=== PATIENT | female | born 1965 | race Two or more races ===

== ENCOUNTER 2023-01-18 15:24 | Inpatient (IN) | payer OTHER ==
[2023-01-18] MEDS ORDERED: ALBUTEROL SO4 2.5/IPRATROPIUM 0.5 INH SOL 3 ML VIAL.NEB. NEB ONE (16:19)
[2023-01-18] MEDS: ALBUTEROL SO4 2.5/IPRATROPIUM 0.5 INH SOL 3 ML VIAL.NEB. NEB SCH (16:24)
[2023-01-18 16:35] LABS: BASO % 0.6 % (0-2.0); EOS % 0.3 % (0-4.5); HEMOGLOBIN 10.1 GM/dL (10.7-15.3); MCH 27.1 pg (25.7-33.7); MCHC 31.6 g/dl (32.0-36.0); MEAN CELL VOLUME 85.9 fl (80-96); MEAN PLT VOLUME 7.5 fl (7.5-11.1); MONO % 5.8 % (3.8-10.2); NEUT % 87.3 % (42.8-82.8); PLATELET COUNT 988 10^3/uL (134-434); RBC 3.72 M/mm3 (3.60-5.2); WHITE BLOOD COUNT 12.6 K/mm3 (4.0-10.0)
[2023-01-18] MEDS ORDERED: PIPERACILLIN/TAZOB 4.5 GM 4.5 GM in DEXTROSE 5%-WATER - 100 ML IVPB ONE (16:49)
[2023-01-18] MEDS ORDERED: VANCOMYCIN 1,000 MG in DEXTROSE 5%-WATER - 250 ML IVPB ONE (16:49)
[2023-01-18 16:52] LABS: SODIUM 137 mmol/L (136-145)
[2023-01-18] MEDS ORDERED: AZITHROMYCIN IVPB 500 MG in DEXTROSE 5%-WATER - 250 ML IVPB ONE (16:52)
[2023-01-18 16:53] LABS: CHLORIDE 104 mmol/L (98-107)
[2023-01-18 16:55] LABS: ALBUMIN 2.7 g/dl (3.4-5.0); CALCIUM 9.1 mg/dL (8.5-10.1)
[2023-01-18 16:56] LABS: CO2 25 mmol/L (21-32); GLUCOSE,RANDOM 104 mg/dL (74-106); MAGNESIUM 2.1 mg/dL (1.8-2.4)
[2023-01-18] MEDS ORDERED: SODIUM CHLORIDE 1,000 ML IV STA (16:58)
[2023-01-18 16:59] LABS: BILIRUBIN,TOTAL 0.5 mg/dL (0.2-1); CREATININE 1.1 mg/dL (0.55-1.3); SGOT/AST 50 U/L (15-37); SGPT/ALT 30 U/L (13-61)
[2023-01-18 17:01] LABS: ALK PHOS 99 U/L (45-117)
[2023-01-18 17:03] LABS: TOT PROT 7.8 g/dl (6.4-8.2)
[2023-01-18 17:14] LABS: ANION GAP 7 MMOL/L (8-16); POTASSIUM 6.3 mmol/L (3.5-5.1)
[2023-01-18] MEDS ORDERED: PIPERACILLIN/TAZOB 4.5 GM 4.5 GM/100 ML BAG IVPB ONE ×2 (17:33→22:19)
[2023-01-18 17:51] LABS: INR 1.38 (0.83-1.09); PROTHROMBIN TIME (PATIENT) 15.9 SEC (9.7-13.0)
[2023-01-18 17:54] LABS: ACTIVATED PTT 24.9 SECONDS (25.2-36.5)
[2023-01-18] MEDS ORDERED: VANCOMYCIN 1 GRAM (PRE-DOCKED) 1,000 MG/250 ML BAG IVPB ONE (18:04)
[2023-01-18 18:06] LABS: POTASSIUM 4.9 mmol/L (3.5-5.1)
[2023-01-18 18:09] LABS: CALCIUM 8.5 mg/dL (8.5-10.1)
[2023-01-18 18:10] LABS: ALBUMIN 2.6 g/dl (3.4-5.0); BLOOD UREA NITROGEN 20.3 mg/dL (7-18)
[2023-01-18 18:14] LABS: BILIRUBIN,TOTAL 0.4 mg/dL (0.2-1); TOT PROT 7.6 g/dl (6.4-8.2)
[2023-01-18] MEDS ORDERED: methylPREDNISolone NA SUCC 125 MG/2 ML VIAL IVPUSH ONE (18:30)
[2023-01-18] MEDS ORDERED: methylPREDNISolone NA SUCC 125 MG/2 ML VIAL ONE (18:36)
[2023-01-18] MEDS ORDERED: AZITHROMYCIN IVPB 500 MG/250 ML BAG IVPB ONE (20:36)
[2023-01-18] MEDS: INSULIN SLIDING SCALE (NOVOLOG) 1 VIAL SQ SCH (21:00)
[2023-01-18] MEDS ORDERED: ALBUTEROL SO4 2.5/IPRATROPIUM 0.5 INH SOL 3 ML VIAL.NEB. NEB PRN (21:32)
[2023-01-18 21:45] LABS: HIV INTERPRETATION NEGATIVE (NEGATIVE)
[2023-01-18 21:56] LABS: EPI CELLS 16 /uL (0-25.1); HYALINE CASTS 1 /uL (0-3.1); PH,URINE 5.5 (5.0-8.0); URINE APPEARANCE CLEAR; URINE BACTERIA 28 /uL (0-1359); URINE BILIRUBIN NEGATIVE (NEGATIVE); URINE COLOR YELLOW; URINE GLUCOSE (UA) NEGATIVE (NEGATIVE); URINE KETONE NEGATIVE (NEGATIVE); URINE LEUK ESTERASE TRACE (NEGATIVE); URINE NITRITE NEGATIVE (NEGATIVE); URINE PROTEIN TRACE (NEGATIVE); URINE RBC 9 /uL (0-23.9); URINE UROBILINOGEN 0.2 mg/dL (0.2-1.0); URINE WBC 22 /uL (0-25.8)
[2023-01-18] MEDS: PIPERACILLIN/TAZOB 4.5 GM 4.5 GM in DEXTROSE 5%-WATER 100 ML IVPB SCH (22:25)
[2023-01-19] MEDS ORDERED: PIPERACILLIN/TAZOB 4.5 GM 4.5 GM in DEXTROSE 5%-WATER 100 ML IVPB SCH ×2 (03:00)
[2023-01-19] MEDS ORDERED: PIPERACILLIN/TAZOB 4.5 GM 4.5 GM/100 ML BAG IVPB ONE ×3 (03:11→15:20)
[2023-01-19] MEDS: PIPERACILLIN/TAZOB 4.5 GM 4.5 GM in DEXTROSE 5%-WATER 100 ML IVPB SCH ×5 (03:20→22:11)
[2023-01-19] MEDS ORDERED: SODIUM CHLORIDE 500 ML IV STA (04:05)
[2023-01-19] MEDS ORDERED: VANCOMYCIN PREMIX 1.5 GM 1,500 MG/300 ML BAG IVPB ONE (06:00)
[2023-01-19] MEDS: INSULIN SLIDING SCALE (NOVOLOG) 1 VIAL SQ SCH ×4 (08:22→22:12)
[2023-01-19 08:34] LABS: HEMATOCRIT 28.2 % (32.4-45.2); HEMOGLOBIN 8.9 GM/dL (10.7-15.3); MCH 27.8 pg (25.7-33.7); MCHC 31.4 g/dl (32.0-36.0); MEAN CELL VOLUME 88.5 fl (80-96); MEAN PLT VOLUME 7.9 fl (7.5-11.1); PLATELET COUNT 800 10^3/uL (134-434); RBC 3.19 M/mm3 (3.60-5.2); RDW 15.8 % (11.6-15.6); WHITE BLOOD COUNT 9.4 K/mm3 (4.0-10.0)
[2023-01-19 08:51] LABS: POTASSIUM 5.2 mmol/L (3.5-5.1)
[2023-01-19 08:52] LABS: CALCIUM 8.2 mg/dL (8.5-10.1)
[2023-01-19 08:54] LABS: ALBUMIN 2.4 g/dl (3.4-5.0)
[2023-01-19 08:59] LABS: BILIRUBIN,TOTAL 0.5 mg/dL (0.2-1); TOT PROT 6.9 g/dl (6.4-8.2)
[2023-01-19 09:40] LABS: ANISOCYTOSIS 1+; MACROCYTOSIS 0
[2023-01-19] MEDS ORDERED: PATIENT'S OWN MEDICATION (NON-FORMULARY) (Escitalopram Oxalate [Escitalopram Oxalate] 5 MG PO SCH (10:00)
[2023-01-19] MEDS ORDERED: AZITHROMYCIN IVPB 500 MG in DEXTROSE 5%-WATER - 250 ML IVPB SCH (10:00)
[2023-01-19] MEDS ORDERED: ENOXAPARIN NA (PORCINE) 40 MG/0.4 ML DISP.SYRIN SQ ONE (10:40)
[2023-01-19] MEDS ORDERED: ESCITALOPRAM OXALATE 10 MG TABLET ONE (10:40)
[2023-01-19] MEDS ORDERED: METOPROLOL TARTRATE 50 MG TABLET (FP) ONE (10:40)
[2023-01-19] MEDS ORDERED: methylPREDNISolone NA SUCC 40 MG/1 ML VIAL ONE (10:40)
[2023-01-19] MEDS ORDERED: AZITHROMYCIN IVPB 500 MG/250 ML BAG IVPB ONE (10:41)
[2023-01-19] MEDS: AZITHROMYCIN IVPB 500 MG/250 ML BAG IVPB SCH (10:55)
[2023-01-19] MEDS: ENOXAPARIN NA (PORCINE) 40 MG/0.4 ML DISP.SYRIN SQ SCH (10:55)
[2023-01-19] MEDS: METOPROLOL TARTRATE 50 MG TABLET (FP) PO SCH (10:55)
[2023-01-19] MEDS: methylPREDNISolone NA SUCC 40 MG/1 ML VIAL IVPUSH SCH (10:55)
[2023-01-19] MEDS: ESCITALOPRAM OXALATE 10 MG TABLET PO SCH (10:55)
[2023-01-19] MEDS: ALBUTEROL SO4 2.5/IPRATROPIUM 0.5 INH SOL 3 ML VIAL.NEB. NEB SCH ×3 (12:55→21:09)
[2023-01-19] MEDS ORDERED: ALBUTEROL SO4 2.5/IPRATROPIUM 0.5 INH SOL 3 ML VIAL.NEB. NEB ONE ×2 (12:56→16:48)
[2023-01-19 18:01] VITALS: BMI 36.6
[2023-01-19] MEDS ORDERED: PATIENT'S OWN MEDICATION (NON-FORMULARY) (Olmesartan Medoxomil [Olmesartan Medoxomil] 20 M PO SCH (22:00)
[2023-01-19] MEDS: DONEPEZIL HCL 5 MG TABLET (FP) PO SCH (22:11)
[2023-01-19] MEDS: LOSARTAN POTASSIUM 50 MG TABLET PO SCH ×2 (22:13→22:15)
[2023-01-20] MEDS: PIPERACILLIN/TAZOB 4.5 GM 4.5 GM in DEXTROSE 5%-WATER 100 ML IVPB SCH ×3 (02:20→14:15)
[2023-01-20] MEDS: INSULIN SLIDING SCALE (NOVOLOG) 1 VIAL SQ SCH ×4 (06:14→21:53)
[2023-01-20 07:55] LABS: BASO % 0.2 % (0-2.0); HEMATOCRIT 28.4 % (32.4-45.2); HEMOGLOBIN 8.8 GM/dL (10.7-15.3); LYMPH % 7.3 % (8-40); MCH 27.1 pg (25.7-33.7); MCHC 31.2 g/dl (32.0-36.0); MEAN PLT VOLUME 7.9 fl (7.5-11.1); MONO % 6.5 % (3.8-10.2); PLATELET COUNT 799 10^3/uL (134-434); RBC 3.27 M/mm3 (3.60-5.2); RDW 15.4 % (11.6-15.6)
[2023-01-20 08:12] LABS: POTASSIUM 4.6 mmol/L (3.5-5.1)
[2023-01-20 08:20] LABS: ALBUMIN 2.2 g/dl (3.4-5.0); BLOOD UREA NITROGEN 20.6 mg/dL (7-18); CALCIUM 8.2 mg/dL (8.5-10.1)
[2023-01-20 08:23] LABS: CREATININE 0.9 mg/dL (0.55-1.3)
[2023-01-20 08:25] LABS: BILIRUBIN,TOTAL 0.4 mg/dL (0.2-1)
[2023-01-20 08:26] LABS: TOT PROT 6.6 g/dl (6.4-8.2)
[2023-01-20] MEDS: ALBUTEROL SO4 2.5/IPRATROPIUM 0.5 INH SOL 3 ML VIAL.NEB. NEB SCH ×4 (10:05→20:47)
[2023-01-20] MEDS: ENOXAPARIN NA (PORCINE) 40 MG/0.4 ML DISP.SYRIN SQ SCH (11:40)
[2023-01-20] MEDS: ESCITALOPRAM OXALATE 10 MG TABLET PO SCH (11:41)
[2023-01-20] MEDS: AZITHROMYCIN IVPB 500 MG/250 ML BAG IVPB SCH (11:41)
[2023-01-20] MEDS: methylPREDNISolone NA SUCC 40 MG/1 ML VIAL IVPUSH SCH (11:41)
[2023-01-20] MEDS: METOPROLOL TARTRATE 50 MG TABLET (FP) PO SCH (11:41)
[2023-01-20] MEDS ORDERED: FUROSEMIDE 40 MG/4 ML INJECTABLE VIAL IVPUSH ONE (12:28)
[2023-01-20] MEDS: VANCOMYCIN HCL 1,500 MG in DEXTROSE 5%-WATER - 250 ML IVPB SCH (20:45)
[2023-01-20] MEDS ORDERED: INSULIN (NOVOLOG) ASPART 100 UNITS/ML 10ML VIAL ONE (21:37)
[2023-01-20] MEDS: DONEPEZIL HCL 5 MG TABLET (FP) PO SCH (21:52)
[2023-01-20] MEDS: VANCOMYCIN/WATER 1250 MG 1,250 MG/250 ML BAG IVPB SCH (21:52)
[2023-01-20] MEDS: LOSARTAN POTASSIUM 50 MG TABLET PO SCH (22:48)
[2023-01-21] MEDS: MEROPENEM 1 GM in DEXTROSE 5%-WATER 100 ML IVPB SCH ×3 (02:04→17:22)
[2023-01-21] MEDS: INSULIN SLIDING SCALE (NOVOLOG) 1 VIAL SQ SCH ×4 (06:27→21:28)
[2023-01-21] MEDS: VANCOMYCIN/WATER 1250 MG 1,250 MG/250 ML BAG IVPB SCH ×2 (06:28→18:16)
[2023-01-21] MEDS: ALBUTEROL SO4 2.5/IPRATROPIUM 0.5 INH SOL 3 ML VIAL.NEB. NEB SCH ×4 (07:20→21:02)
[2023-01-21] MEDS: methylPREDNISolone NA SUCC 40 MG/1 ML VIAL IVPUSH SCH (09:00)
[2023-01-21] MEDS: ESCITALOPRAM OXALATE 10 MG TABLET PO SCH (09:00)
[2023-01-21] MEDS: METOPROLOL TARTRATE 50 MG TABLET (FP) PO SCH (09:02)
[2023-01-21] MEDS: ENOXAPARIN NA (PORCINE) 40 MG/0.4 ML DISP.SYRIN SQ SCH (09:02)
[2023-01-21] MEDS: AZITHROMYCIN IVPB 500 MG/250 ML BAG IVPB SCH (09:36)
[2023-01-21 11:54] LABS: BASO % 0.1 % (0-2.0); EOS % 0.1 % (0-4.5); HEMATOCRIT 33.3 % (32.4-45.2); HEMOGLOBIN 10.6 GM/dL (10.7-15.3); MCH 27.2 pg (25.7-33.7); MCHC 31.7 g/dl (32.0-36.0); MEAN PLT VOLUME 7.5 fl (7.5-11.1); MONO % 5.8 % (3.8-10.2); PLATELET COUNT 908 10^3/uL (134-434); RBC 3.88 M/mm3 (3.60-5.2); RDW 15.8 % (11.6-15.6); WHITE BLOOD COUNT 12.6 K/mm3 (4.0-10.0)
[2023-01-21 12:14] LABS: POTASSIUM 4.6 mmol/L (3.5-5.1)
[2023-01-21 12:16] LABS: CALCIUM 8.7 mg/dL (8.5-10.1)
[2023-01-21 12:17] LABS: BLOOD UREA NITROGEN 18.7 mg/dL (7-18); MAGNESIUM 1.8 mg/dL (1.8-2.4)
[2023-01-21 12:20] LABS: CREATININE 0.9 mg/dL (0.55-1.3)
[2023-01-21 12:21] LABS: BILIRUBIN,TOTAL 0.3 mg/dL (0.2-1); TOT PROT 7.9 g/dl (6.4-8.2)
[2023-01-21 12:27] LABS: ALBUMIN 2.8 g/dl (3.4-5.0); PHOSPHOROUS 2.8 mg/dL (2.5-4.9)
[2023-01-21] MEDS ORDERED: INSULIN (NOVOLOG) ASPART 100 UNITS/ML 10ML VIAL ONE ×2 (16:45→20:46)
[2023-01-21] MEDS: DONEPEZIL HCL 5 MG TABLET (FP) PO SCH (21:19)
[2023-01-21] MEDS: LOSARTAN POTASSIUM 50 MG TABLET PO SCH (21:19)
[2023-01-22] MEDS: MEROPENEM 1 GM in DEXTROSE 5%-WATER 100 ML IVPB SCH ×3 (03:09→17:25)
[2023-01-22 06:02] LABS: BASO % 0.1 % (0-2.0); EOS % 0.1 % (0-4.5); HEMATOCRIT 32.7 % (32.4-45.2); HEMOGLOBIN 10.3 GM/dL (10.7-15.3); LYMPH % 13.7 % (8-40); MCH 27.3 pg (25.7-33.7); MCHC 31.6 g/dl (32.0-36.0); MEAN CELL VOLUME 86.4 fl (80-96); MEAN PLT VOLUME 7.2 fl (7.5-11.1); MONO % 10.1 % (3.8-10.2); PLATELET COUNT 880 10^3/uL (134-434); RBC 3.78 M/mm3 (3.60-5.2); RDW 15.6 % (11.6-15.6); WHITE BLOOD COUNT 9.5 K/mm3 (4.0-10.0)
[2023-01-22] MEDS: INSULIN SLIDING SCALE (NOVOLOG) 1 VIAL SQ SCH ×4 (06:09→22:56)
[2023-01-22 06:30] LABS: POTASSIUM 4.5 mmol/L (3.5-5.1)
[2023-01-22 06:41] LABS: CALCIUM 8.9 mg/dL (8.5-10.1)
[2023-01-22 06:43] LABS: ALBUMIN 2.8 g/dl (3.4-5.0); BLOOD UREA NITROGEN 17.1 mg/dL (7-18)
[2023-01-22 07:44] LABS: MAGNESIUM 1.8 mg/dL (1.8-2.4)
[2023-01-22 07:48] LABS: CREATININE 0.8 mg/dL (0.55-1.3); PHOSPHOROUS 2.6 mg/dL (2.5-4.9)
[2023-01-22 07:49] LABS: BILIRUBIN,TOTAL 0.4 mg/dL (0.2-1); TOT PROT 7.6 g/dl (6.4-8.2)
[2023-01-22] MEDS: VANCOMYCIN/WATER 1250 MG 1,250 MG/250 ML BAG IVPB SCH (08:20)
[2023-01-22] MEDS: ALBUTEROL SO4 2.5/IPRATROPIUM 0.5 INH SOL 3 ML VIAL.NEB. NEB SCH ×4 (08:25→20:52)
[2023-01-22] MEDS: METOPROLOL TARTRATE 50 MG TABLET (FP) PO SCH (09:03)
[2023-01-22] MEDS: ESCITALOPRAM OXALATE 10 MG TABLET PO SCH (09:03)
[2023-01-22] MEDS: methylPREDNISolone NA SUCC 40 MG/1 ML VIAL IVPUSH SCH (09:03)
[2023-01-22] MEDS: ENOXAPARIN NA (PORCINE) 40 MG/0.4 ML DISP.SYRIN SQ SCH (09:05)
[2023-01-22] MEDS: AZITHROMYCIN IVPB 500 MG/250 ML BAG IVPB SCH (09:49)
[2023-01-22] MEDS ORDERED: INSULIN (NOVOLOG) ASPART 100 UNITS/ML 10ML VIAL ONE ×2 (11:34→17:21)
[2023-01-22] MEDS: LOSARTAN POTASSIUM 50 MG TABLET PO SCH (22:52)
[2023-01-22] MEDS: DONEPEZIL HCL 5 MG TABLET (FP) PO SCH (22:52)
[2023-01-23] MEDS: MEROPENEM 1 GM in DEXTROSE 5%-WATER 100 ML IVPB SCH ×3 (03:07→17:11)
[2023-01-23] MEDS: INSULIN SLIDING SCALE (NOVOLOG) 1 VIAL SQ SCH ×3 (06:25→17:11)
[2023-01-23] MEDS: ALBUTEROL SO4 2.5/IPRATROPIUM 0.5 INH SOL 3 ML VIAL.NEB. NEB SCH ×4 (07:40→20:43)
[2023-01-23 08:30] LABS: BASO % 0.1 % (0-2.0); EOS % 0.2 % (0-4.5); HEMATOCRIT 29.4 % (32.4-45.2); HEMOGLOBIN 9.5 GM/dL (10.7-15.3); MCH 27.8 pg (25.7-33.7); MCHC 32.5 g/dl (32.0-36.0); MEAN CELL VOLUME 85.6 fl (80-96); MEAN PLT VOLUME 7.1 fl (7.5-11.1); MONO % 9.4 % (3.8-10.2); NEUT % 77.3 % (42.8-82.8); PLATELET COUNT 668 10^3/uL (134-434); RBC 3.43 M/mm3 (3.60-5.2); RDW 15.7 % (11.6-15.6); WHITE BLOOD COUNT 8.7 K/mm3 (4.0-10.0)
[2023-01-23 08:50] LABS: POTASSIUM 4.2 mmol/L (3.5-5.1)
[2023-01-23 08:57] LABS: ALBUMIN 2.4 g/dl (3.4-5.0)
[2023-01-23 08:58] LABS: CALCIUM 8.5 mg/dL (8.5-10.1)
[2023-01-23 08:59] LABS: BILIRUBIN,TOTAL 0.3 mg/dL (0.2-1); BLOOD UREA NITROGEN 16.2 mg/dL (7-18); MAGNESIUM 1.8 mg/dL (1.8-2.4); TOT PROT 6.6 g/dl (6.4-8.2)
[2023-01-23 09:01] LABS: CREATININE 0.7 mg/dL (0.55-1.3); PHOSPHOROUS 2.8 mg/dL (2.5-4.9)
[2023-01-23] MEDS: ENOXAPARIN NA (PORCINE) 40 MG/0.4 ML DISP.SYRIN SQ SCH (10:59)
[2023-01-23] MEDS: methylPREDNISolone NA SUCC 40 MG/1 ML VIAL IVPUSH SCH (11:00)
[2023-01-23] MEDS: ESCITALOPRAM OXALATE 10 MG TABLET PO SCH (11:00)
[2023-01-23] MEDS: METOPROLOL TARTRATE 50 MG TABLET (FP) PO SCH (11:00)
[2023-01-23] MEDS: AZITHROMYCIN IVPB 500 MG/250 ML BAG IVPB SCH (11:01)
[2023-01-23] MEDS ORDERED: INSULIN (NOVOLOG) ASPART 100 UNITS/ML 10ML VIAL ONE (16:53)
[2023-01-23] MEDS: LOSARTAN POTASSIUM 50 MG TABLET PO SCH (23:59)
[2023-01-23] MEDS: DONEPEZIL HCL 5 MG TABLET (FP) PO SCH (23:59)
[2023-01-24] MEDS ORDERED: INSULIN (NOVOLOG) ASPART 100 UNITS/ML 10ML VIAL ONE ×2 (00:11→17:53)
[2023-01-24] MEDS: INSULIN SLIDING SCALE (NOVOLOG) 1 VIAL SQ SCH ×5 (00:13→23:19)
[2023-01-24] MEDS: MEROPENEM 1 GM in DEXTROSE 5%-WATER 100 ML IVPB SCH ×3 (03:13→17:58)
[2023-01-24 07:55] LABS: CALCIUM 8.5 mg/dL (8.5-10.1)
[2023-01-24 07:56] LABS: ALBUMIN 2.5 g/dl (3.4-5.0); BLOOD UREA NITROGEN 18.1 mg/dL (7-18); MAGNESIUM 1.8 mg/dL (1.8-2.4)
[2023-01-24 07:59] LABS: CREATININE 0.6 mg/dL (0.55-1.3); PHOSPHOROUS 2.8 mg/dL (2.5-4.9)
[2023-01-24 08:00] LABS: BILIRUBIN,TOTAL 0.3 mg/dL (0.2-1); TOT PROT 6.7 g/dl (6.4-8.2)
[2023-01-24 08:07] LABS: BASO % 0.1 % (0-2.0); EOS % 0.4 % (0-4.5); HEMATOCRIT 31.3 % (32.4-45.2); HEMOGLOBIN 9.8 GM/dL (10.7-15.3); LYMPH % 13.9 % (8-40); MCH 27.1 pg (25.7-33.7); MCHC 31.4 g/dl (32.0-36.0); MEAN CELL VOLUME 86.2 fl (80-96); MEAN PLT VOLUME 7.6 fl (7.5-11.1); MONO % 10.5 % (3.8-10.2); NEUT % 75.1 % (42.8-82.8); PLATELET COUNT 711 10^3/uL (134-434); RBC 3.63 M/mm3 (3.60-5.2); RDW 15.6 % (11.6-15.6); WHITE BLOOD COUNT 9.3 K/mm3 (4.0-10.0)
[2023-01-24] MEDS: ALBUTEROL SO4 2.5/IPRATROPIUM 0.5 INH SOL 3 ML VIAL.NEB. NEB SCH (09:45)
[2023-01-24] MEDS: methylPREDNISolone NA SUCC 40 MG/1 ML VIAL IVPUSH SCH (10:43)
[2023-01-24] MEDS: ESCITALOPRAM OXALATE 10 MG TABLET PO SCH (10:43)
[2023-01-24] MEDS: ENOXAPARIN NA (PORCINE) 40 MG/0.4 ML DISP.SYRIN SQ SCH (10:43)
[2023-01-24] MEDS: METOPROLOL TARTRATE 50 MG TABLET (FP) PO SCH (10:44)
[2023-01-24] MEDS: AZITHROMYCIN IVPB 500 MG/250 ML BAG IVPB SCH (10:44)
[2023-01-24] MEDS ORDERED: CASPOFUNGIN ACETATE 70 MG in SODIUM CHLORIDE 250 ML IVPB ONE (19:00)
[2023-01-24] MEDS: DONEPEZIL HCL 5 MG TABLET (FP) PO SCH (22:19)
[2023-01-24] MEDS: LOSARTAN POTASSIUM 50 MG TABLET PO SCH (22:19)
[2023-01-25] MEDS: MEROPENEM 1 GM in DEXTROSE 5%-WATER 100 ML IVPB SCH ×3 (03:16→17:39)
[2023-01-25] MEDS: INSULIN SLIDING SCALE (NOVOLOG) 1 VIAL SQ SCH ×4 (06:54→22:29)
[2023-01-25 08:39] LABS: BASO % 0.2 % (0-2.0); EOS % 0.6 % (0-4.5); HEMATOCRIT 31.3 % (32.4-45.2); LYMPH % 16.2 % (8-40); MCH 27.2 pg (25.7-33.7); MCHC 31.9 g/dl (32.0-36.0); MEAN CELL VOLUME 85.2 fl (80-96); MEAN PLT VOLUME 7.4 fl (7.5-11.1); MONO % 9.3 % (3.8-10.2); NEUT % 73.7 % (42.8-82.8); PLATELET COUNT 650 10^3/uL (134-434); RBC 3.68 M/mm3 (3.60-5.2); RDW 15.6 % (11.6-15.6)
[2023-01-25 09:02] LABS: POTASSIUM 3.9 mmol/L (3.5-5.1)
[2023-01-25 09:09] LABS: ALBUMIN 2.4 g/dl (3.4-5.0); BLOOD UREA NITROGEN 18.9 mg/dL (7-18); CALCIUM 8.6 mg/dL (8.5-10.1); MAGNESIUM 1.7 mg/dL (1.8-2.4)
[2023-01-25 09:11] LABS: BILIRUBIN,TOTAL 0.4 mg/dL (0.2-1); TOT PROT 6.5 g/dl (6.4-8.2)
[2023-01-25 09:12] LABS: CREATININE 0.6 mg/dL (0.55-1.3)
[2023-01-25] MEDS: METOPROLOL TARTRATE 50 MG TABLET (FP) PO SCH (10:04)
[2023-01-25] MEDS: ESCITALOPRAM OXALATE 10 MG TABLET PO SCH (10:04)
[2023-01-25] MEDS: ENOXAPARIN NA (PORCINE) 40 MG/0.4 ML DISP.SYRIN SQ SCH (10:04)
[2023-01-25] MEDS: CASPOFUNGIN ACETATE 50 MG in SODIUM CHLORIDE 250 ML IVPB SCH (11:01)
[2023-01-25] MEDS ORDERED: INSULIN (NOVOLOG) ASPART 100 UNITS/ML 10ML VIAL ONE (21:58)
[2023-01-25] MEDS: DONEPEZIL HCL 5 MG TABLET (FP) PO SCH (22:29)
[2023-01-25] MEDS: LOSARTAN POTASSIUM 50 MG TABLET PO SCH (22:29)
[2023-01-26] MEDS: MEROPENEM 1 GM in DEXTROSE 5%-WATER 100 ML IVPB SCH ×3 (01:49→19:20)
[2023-01-26] MEDS: INSULIN SLIDING SCALE (NOVOLOG) 1 VIAL SQ SCH ×4 (07:01→21:13)
[2023-01-26 09:29] LABS: BASO % 0.6 % (0-2.0); EOS % 3.2 % (0-4.5); HEMATOCRIT 34.7 % (32.4-45.2); HEMOGLOBIN 10.8 GM/dL (10.7-15.3); MCH 26.6 pg (25.7-33.7); MCHC 31.2 g/dl (32.0-36.0); MEAN CELL VOLUME 85.1 fl (80-96); MEAN PLT VOLUME 7.4 fl (7.5-11.1); NEUT % 64.2 % (42.8-82.8); PLATELET COUNT 637 10^3/uL (134-434); RBC 4.08 M/mm3 (3.60-5.2); RDW 15.9 % (11.6-15.6); WHITE BLOOD COUNT 6.5 K/mm3 (4.0-10.0)
[2023-01-26 09:48] LABS: POTASSIUM 3.7 mmol/L (3.5-5.1)
[2023-01-26 09:57] LABS: CALCIUM 8.8 mg/dL (8.5-10.1)
[2023-01-26 09:58] LABS: ALBUMIN 2.6 g/dl (3.4-5.0); BLOOD UREA NITROGEN 19.4 mg/dL (7-18); MAGNESIUM 1.8 mg/dL (1.8-2.4)
[2023-01-26 10:00] LABS: BILIRUBIN,TOTAL 0.5 mg/dL (0.2-1); CREATININE 0.6 mg/dL (0.55-1.3); TOT PROT 6.8 g/dl (6.4-8.2)
[2023-01-26] MEDS: METOPROLOL TARTRATE 50 MG TABLET (FP) PO SCH (11:30)
[2023-01-26] MEDS: ENOXAPARIN NA (PORCINE) 40 MG/0.4 ML DISP.SYRIN SQ SCH (11:30)
[2023-01-26] MEDS: PANTOPRAZOLE 40 MG TABLET PO SCH (11:30)
[2023-01-26] MEDS: ESCITALOPRAM OXALATE 10 MG TABLET PO SCH (11:31)
[2023-01-26] MEDS: CASPOFUNGIN ACETATE 50 MG in SODIUM CHLORIDE 250 ML IVPB SCH (11:31)
[2023-01-26] MEDS: DONEPEZIL HCL 5 MG TABLET (FP) PO SCH (21:13)
[2023-01-26] MEDS: LOSARTAN POTASSIUM 50 MG TABLET PO SCH (21:13)
[2023-01-27] MEDS: MEROPENEM 1 GM in DEXTROSE 5%-WATER 100 ML IVPB SCH ×3 (01:41→18:05)
[2023-01-27] MEDS: INSULIN SLIDING SCALE (NOVOLOG) 1 VIAL SQ SCH ×4 (06:55→21:50)
[2023-01-27] MEDS: ESCITALOPRAM OXALATE 10 MG TABLET PO SCH (10:38)
[2023-01-27] MEDS: METOPROLOL TARTRATE 50 MG TABLET (FP) PO SCH (10:38)
[2023-01-27] MEDS: PANTOPRAZOLE 40 MG TABLET PO SCH (10:39)
[2023-01-27] MEDS: ENOXAPARIN NA (PORCINE) 40 MG/0.4 ML DISP.SYRIN SQ SCH (10:39)
[2023-01-27] MEDS: CASPOFUNGIN ACETATE 50 MG in SODIUM CHLORIDE 250 ML IVPB SCH (10:39)
[2023-01-27 10:52] LABS: BASO % 0.4 % (0-2.0); EOS % 2.2 % (0-4.5); HEMATOCRIT 36.9 % (32.4-45.2); HEMOGLOBIN 11.9 GM/dL (10.7-15.3); LYMPH % 17.2 % (8-40); MCHC 32.3 g/dl (32.0-36.0); MEAN CELL VOLUME 83.5 fl (80-96); MONO % 10.4 % (3.8-10.2); NEUT % 69.8 % (42.8-82.8); PLATELET COUNT 648 10^3/uL (134-434); RBC 4.41 M/mm3 (3.60-5.2); RDW 15.6 % (11.6-15.6); WHITE BLOOD COUNT 7.1 K/mm3 (4.0-10.0)
[2023-01-27 11:11] LABS: POTASSIUM 3.8 mmol/L (3.5-5.1)
[2023-01-27 11:13] LABS: BLOOD UREA NITROGEN 14.5 mg/dL (7-18); MAGNESIUM 1.8 mg/dL (1.8-2.4)
[2023-01-27 11:16] LABS: CREATININE 0.7 mg/dL (0.55-1.3)
[2023-01-27 11:18] LABS: BILIRUBIN,TOTAL 0.6 mg/dL (0.2-1); TOT PROT 7.4 g/dl (6.4-8.2)
[2023-01-27] MEDS ORDERED: INSULIN (NOVOLOG) ASPART 100 UNITS/ML 10ML VIAL ONE (12:13)
[2023-01-27] MEDS: LOSARTAN POTASSIUM 50 MG TABLET PO SCH (21:50)
[2023-01-27] MEDS: DONEPEZIL HCL 5 MG TABLET (FP) PO SCH (21:50)
[2023-01-28] MEDS: MEROPENEM 1 GM in DEXTROSE 5%-WATER 100 ML IVPB SCH ×3 (01:29→17:19)
[2023-01-28] MEDS: INSULIN SLIDING SCALE (NOVOLOG) 1 VIAL SQ SCH ×4 (06:22→21:46)
[2023-01-28 09:46] LABS: EOS % 2.4 % (0-4.5); HEMATOCRIT 34.1 % (32.4-45.2); HEMOGLOBIN 10.9 GM/dL (10.7-15.3); LYMPH % 19.4 % (8-40); MCH 27.5 pg (25.7-33.7); MCHC 31.9 g/dl (32.0-36.0); MEAN PLT VOLUME 7.8 fl (7.5-11.1); MONO % 9.8 % (3.8-10.2); NEUT % 67.4 % (42.8-82.8); PLATELET COUNT 514 10^3/uL (134-434); RBC 3.96 M/mm3 (3.60-5.2); RDW 15.9 % (11.6-15.6); WHITE BLOOD COUNT 6.7 K/mm3 (4.0-10.0)
[2023-01-28] MEDS: ENOXAPARIN NA (PORCINE) 40 MG/0.4 ML DISP.SYRIN SQ SCH (10:03)
[2023-01-28 10:04] LABS: POTASSIUM 3.8 mmol/L (3.5-5.1)
[2023-01-28] MEDS: METOPROLOL TARTRATE 50 MG TABLET (FP) PO SCH (10:04)
[2023-01-28] MEDS: ESCITALOPRAM OXALATE 10 MG TABLET PO SCH (10:04)
[2023-01-28 10:18] LABS: ALBUMIN 2.7 g/dl (3.4-5.0); BLOOD UREA NITROGEN 13.1 mg/dL (7-18); CALCIUM 8.9 mg/dL (8.5-10.1); MAGNESIUM 1.8 mg/dL (1.8-2.4)
[2023-01-28 10:21] LABS: CREATININE 0.7 mg/dL (0.55-1.3)
[2023-01-28 10:23] LABS: BILIRUBIN,TOTAL 0.5 mg/dL (0.2-1)
[2023-01-28] MEDS: CASPOFUNGIN ACETATE 50 MG in SODIUM CHLORIDE 250 ML IVPB SCH (10:46)
[2023-01-28] MEDS: PANTOPRAZOLE 40 MG TABLET PO SCH (10:53)
[2023-01-28] MEDS ORDERED: INSULIN (NOVOLOG) ASPART 100 UNITS/ML 10ML VIAL ONE ×2 (11:42→20:46)
[2023-01-28] MEDS: DONEPEZIL HCL 5 MG TABLET (FP) PO SCH (21:41)
[2023-01-28] MEDS: LOSARTAN POTASSIUM 50 MG TABLET PO SCH (21:41)
[2023-01-29] MEDS: MEROPENEM 1 GM in DEXTROSE 5%-WATER 100 ML IVPB SCH ×3 (01:39→17:30)
[2023-01-29] MEDS ORDERED: INSULIN (NOVOLOG) ASPART 100 UNITS/ML 10ML VIAL ONE ×2 (05:41→21:24)
[2023-01-29] MEDS: INSULIN SLIDING SCALE (NOVOLOG) 1 VIAL SQ SCH ×4 (06:10→22:21)
[2023-01-29 08:58] LABS: BASO % 0.5 % (0-2.0); EOS % 4.4 % (0-4.5); HEMATOCRIT 33.5 % (32.4-45.2); HEMOGLOBIN 10.6 GM/dL (10.7-15.3); MCH 27.1 pg (25.7-33.7); MCHC 31.6 g/dl (32.0-36.0); MEAN CELL VOLUME 85.9 fl (80-96); MEAN PLT VOLUME 7.6 fl (7.5-11.1); MONO % 13.4 % (3.8-10.2); NEUT % 59.7 % (42.8-82.8); PLATELET COUNT 449 10^3/uL (134-434); RDW 15.5 % (11.6-15.6)
[2023-01-29 09:15] LABS: POTASSIUM 3.6 mmol/L (3.5-5.1)
[2023-01-29 09:21] LABS: ALBUMIN 2.6 g/dl (3.4-5.0); BLOOD UREA NITROGEN 15.3 mg/dL (7-18); CALCIUM 8.9 mg/dL (8.5-10.1); MAGNESIUM 1.8 mg/dL (1.8-2.4)
[2023-01-29 09:24] LABS: CREATININE 0.6 mg/dL (0.55-1.3)
[2023-01-29 09:25] LABS: BILIRUBIN,TOTAL 0.5 mg/dL (0.2-1); TOT PROT 6.8 g/dl (6.4-8.2)
[2023-01-29] MEDS: ENOXAPARIN NA (PORCINE) 40 MG/0.4 ML DISP.SYRIN SQ SCH (10:26)
[2023-01-29] MEDS: PANTOPRAZOLE 40 MG TABLET PO SCH (10:26)
[2023-01-29] MEDS: METOPROLOL TARTRATE 50 MG TABLET (FP) PO SCH (10:26)
[2023-01-29] MEDS: ESCITALOPRAM OXALATE 10 MG TABLET PO SCH (10:26)
[2023-01-29] MEDS: CASPOFUNGIN ACETATE 50 MG in SODIUM CHLORIDE 250 ML IVPB SCH (11:05)
[2023-01-29 19:17] LABS: INR 1.08 (0.83-1.09); PROTHROMBIN TIME (PATIENT) 12.5 SEC (9.7-13.0)
[2023-01-29] MEDS: LOSARTAN POTASSIUM 50 MG TABLET PO SCH (22:21)
[2023-01-29] MEDS: DONEPEZIL HCL 5 MG TABLET (FP) PO SCH (22:21)
[2023-01-30] MEDS: MEROPENEM 1 GM in DEXTROSE 5%-WATER 100 ML IVPB SCH ×3 (01:56→18:02)
[2023-01-30] MEDS ORDERED: INSULIN (NOVOLOG) ASPART 100 UNITS/ML 10ML VIAL ONE (05:17)
[2023-01-30] MEDS: INSULIN SLIDING SCALE (NOVOLOG) 1 VIAL SQ SCH ×4 (06:51→21:23)
[2023-01-30 09:41] LABS: BASO % 0.5 % (0-2.0); EOS % 6.5 % (0-4.5); HEMATOCRIT 37.5 % (32.4-45.2); HEMOGLOBIN 11.9 GM/dL (10.7-15.3); LYMPH % 24.1 % (8-40); MCH 27.3 pg (25.7-33.7); MCHC 31.9 g/dl (32.0-36.0); MEAN CELL VOLUME 85.8 fl (80-96); MEAN PLT VOLUME 7.3 fl (7.5-11.1); MONO % 10.8 % (3.8-10.2); NEUT % 58.1 % (42.8-82.8); PLATELET COUNT 472 10^3/uL (134-434); RBC 4.37 M/mm3 (3.60-5.2); RDW 16.2 % (11.6-15.6); WHITE BLOOD COUNT 6.7 K/mm3 (4.0-10.0)
[2023-01-30 09:58] LABS: POTASSIUM 4.2 mmol/L (3.5-5.1)
[2023-01-30 10:12] LABS: CREATININE 0.8 mg/dL (0.55-1.3)
[2023-01-30 10:21] LABS: BILIRUBIN,TOTAL 0.4 mg/dL (0.2-1); CALCIUM 9.4 mg/dL (8.5-10.1)
[2023-01-30 10:22] LABS: MAGNESIUM 2.1 mg/dL (1.8-2.4)
[2023-01-30 10:32] LABS: ALBUMIN 3.2 g/dl (3.4-5.0)
[2023-01-30] MEDS: ESCITALOPRAM OXALATE 10 MG TABLET PO SCH (10:39)
[2023-01-30] MEDS: PANTOPRAZOLE 40 MG TABLET PO SCH (10:39)
[2023-01-30] MEDS: ENOXAPARIN NA (PORCINE) 40 MG/0.4 ML DISP.SYRIN SQ SCH (10:39)
[2023-01-30] MEDS: METOPROLOL TARTRATE 50 MG TABLET (FP) PO SCH (10:39)
[2023-01-30] MEDS: CASPOFUNGIN ACETATE 50 MG in SODIUM CHLORIDE 250 ML IVPB SCH (11:20)
[2023-01-30] MEDS ORDERED: MEROPENEM 1 GM VIAL (RESTRICTED TO ID) IVPB ONE (17:14)
[2023-01-30] MEDS: DONEPEZIL HCL 5 MG TABLET (FP) PO SCH (21:22)
[2023-01-30] MEDS: LOSARTAN POTASSIUM 50 MG TABLET PO SCH (21:22)
[2023-01-31] MEDS: MEROPENEM 1 GM in DEXTROSE 5%-WATER 100 ML IVPB SCH ×3 (02:50→18:37)
[2023-01-31] MEDS: INSULIN SLIDING SCALE (NOVOLOG) 1 VIAL SQ SCH ×4 (06:08→23:26)
[2023-01-31 09:34] LABS: BASO % 0.7 % (0-2.0); EOS % 8.3 % (0-4.5); HEMATOCRIT 35.7 % (32.4-45.2); HEMOGLOBIN 11.4 GM/dL (10.7-15.3); LYMPH % 16.7 % (8-40); MCH 26.9 pg (25.7-33.7); MCHC 31.9 g/dl (32.0-36.0); MEAN CELL VOLUME 84.3 fl (80-96); MEAN PLT VOLUME 7.3 fl (7.5-11.1); MONO % 9.2 % (3.8-10.2); NEUT % 65.1 % (42.8-82.8); PLATELET COUNT 391 10^3/uL (134-434); RBC 4.24 M/mm3 (3.60-5.2); RDW 16.1 % (11.6-15.6); WHITE BLOOD COUNT 6.3 K/mm3 (4.0-10.0)
[2023-01-31 09:57] LABS: POTASSIUM 3.8 mmol/L (3.5-5.1)
[2023-01-31 09:59] LABS: ALBUMIN 3.1 g/dl (3.4-5.0); MAGNESIUM 1.7 mg/dL (1.8-2.4)
[2023-01-31 10:02] LABS: CREATININE 0.8 mg/dL (0.55-1.3)
[2023-01-31 10:04] LABS: BILIRUBIN,TOTAL 0.5 mg/dL (0.2-1); TOT PROT 7.6 g/dl (6.4-8.2)
[2023-01-31] MEDS: ENOXAPARIN NA (PORCINE) 40 MG/0.4 ML DISP.SYRIN SQ SCH ×2 (10:10→10:28)
[2023-01-31] MEDS: METOPROLOL TARTRATE 50 MG TABLET (FP) PO SCH (10:10)
[2023-01-31] MEDS: ESCITALOPRAM OXALATE 10 MG TABLET PO SCH (10:10)
[2023-01-31] MEDS: PANTOPRAZOLE 40 MG TABLET PO SCH (10:10)
[2023-01-31] MEDS: CASPOFUNGIN ACETATE 50 MG in SODIUM CHLORIDE 250 ML IVPB SCH (11:08)
[2023-01-31] MEDS ORDERED: INSULIN (NOVOLOG) ASPART 100 UNITS/ML 10ML VIAL ONE (17:02)
[2023-01-31] MEDS: LOSARTAN POTASSIUM 50 MG TABLET PO SCH (22:30)
[2023-01-31] MEDS: DONEPEZIL HCL 5 MG TABLET (FP) PO SCH (22:30)
[2023-02-01] MEDS: MEROPENEM 1 GM in DEXTROSE 5%-WATER 100 ML IVPB SCH ×2 (03:43→10:27)
[2023-02-01] MEDS: INSULIN SLIDING SCALE (NOVOLOG) 1 VIAL SQ SCH ×2 (06:46→12:39)
[2023-02-01] MEDS: METOPROLOL TARTRATE 50 MG TABLET (FP) PO SCH (10:27)
[2023-02-01] MEDS: PANTOPRAZOLE 40 MG TABLET PO SCH (10:27)
[2023-02-01] MEDS: ESCITALOPRAM OXALATE 10 MG TABLET PO SCH (10:28)
[2023-02-01 15:52] VITALS: BP 144/80; PULSE 76; RESP 18; TEMP 98.2
== END 2023-02-01 15:55 | disposition home or self-care (01) | DRG 139 ==
LOC: JER 15:24 → JERBED 18:19 → J4W 01-19 17:37 → J8W 01-24 18:40
PROVIDERS: ADMIT Internal Medicine; ATTEND Nurse Practitioner Acute Care
DX: J18.9 Pneumonia, unspecified organism (principal); G30.9 Alzheimer's disease, unspecified; F02.80 Dementia in other diseases classified elsewhere, unspecified severity, without behavioral disturbance, psychotic disturbance, mood disturbance, and anxiety; I10 Essential (primary) hypertension; E11.9 Type 2 diabetes mellitus without complications; D64.9 Anemia, unspecified; J96.01 Acute respiratory failure with hypoxia; D75.839 Thrombocytosis, unspecified; J90 Pleural effusion, not elsewhere classified; Z99.81 Dependence on supplemental oxygen; I34.0 Nonrheumatic mitral (valve) insufficiency
CPT/HCPCS: 0241U-QW; 36415; 70450-TC; 71045-TC-FY; 71250-TC; 80053; 81003; 82728; 82962; 83036; 83540; 83550; 83735; 83880; 84100; 84443; 84484; 85025; 85610; 85730; 86480; 86790; 87040; 87070; 87077; 87086; 87102; 87106; 87116; 87205; 87206; 87210; 87305; 87389; 87449; 87899; 93005; 93010; 93306-TC; 93970-TC; 94640; 94761; 99285-25; G0480; J0637